=== PATIENT | female | born 1990 ===

== ENCOUNTER 2017-12-18 10:15 | Observation (INO) | payer MEDICAID ==
[2017-12-18 10:15] VITALS: BMI 26.2
--- NOTE | 2017-12-18 10:41 | C.PDOC ---
History Of Present Illness 27 Y/O FEMALE WITH HISTORY OF ANEMIA REFERRED BY PT OBGYN FOR ANEMIA. EGA 32 WKS PATIENT STATES [facility] IS S/P OUTPATIENT LAB 12/17, PATIENT ADVISED TO COME FOR POSSIBLE TRANSFUSION. AT ED PATIENT C/O WORSENING GEN WEAKNESS X SEV WEEKS. NO ABD PAIN, VB OR GI BLEED. EXAM MILD DIST NONTOXIC HEENT +PALLOR ABD GRAVID REMAINDER NEG Chief Complaint (Nursing): Abnormal Labs History Per: Patient History/Exam Limitations: no limitations Onset/Duration Of Symptoms: Days Current Symptoms Are (Timing): Still Present Past Medical History Reviewed: Historical Data, Nursing Documentation, Vital Signs Vital Signs: Last Vital Signs Temp 98.2 F 12/18/17 10:17 Pulse 80 12/18/17 11:55 Resp 18 12/18/17 11:55 BP 100/51 L 12/18/17 11:55 Pulse Ox 100 12/18/17 12:14 - Medical History PMH: Anemia Surgical History: No Surg Hx - [facility] Procedures PACKED CELL TRANSFUSION (02/22/15) Family History: States: No Known Family Hx - Social History Hx Tobacco Use: No Hx Alcohol Use: No Hx Substance Use: No - Immunization History Hx Tetanus Toxoid Vaccination: No Hx Influenza Vaccination: Yes Hx Pneumococcal Vaccination: No Review Of Systems Constitutional: Negative for: Fever, Chills Gastrointestinal: Negative for: Nausea, Vomiting Neurological: Positive for: Weakness. Negative for: Numbness, Dizziness Physical Exam - Physical Exam Appears: Non-toxic, Other (In mild distress) Skin: Warm, Dry, Pale, No Rash Head: Atraumatic, Normacephalic Eye(s): bilateral: PERRL, EOMI, Conjunctiva Pale Oral Mucosa: Moist Neck: Normal ROM, Supple Cardiovascular: Rhythm Regular Respiratory: Normal Breath Sounds, No Rales, No Rhonchi, No Wheezing Gastrointestinal/Abdominal: No Tenderness, No Guarding, No Rebound, Other ( Gravid abdomen) Extremity: Normal ROM, Capillary Refill (<2 seconds) Neurological/Psych: Oriented x3, Normal Speech, Normal Cognition ED Course And Treatment - Laboratory Results Result Diagrams: 12/18/17 11:07 12/18/17 11:07 O2 Sat by Pulse Oximetry: 100 (RA) Pulse Ox Interpretation: Normal Progress - Re-Evaluation Re-evaluation Note: 12/18/17 11:22 exam unch vss. PENDING CALLBACK DR LUCHO PIMENTEL ASSOCIATE PROFESSOR OF SOCIOLOGY 12/18/17 12:09 D/W DR YEPEZ: STATES TO ADMIT MEDICINE, WILL CONSULT. 12/18/17 12:[address] Garcia states will return call 12/18/17 12:39 D/W DR GARCIA AWARE OF ER FINDINGS WILL ADMIT. CONSULT DR SCOTT - Data Reviewed Data Reviewed: Lab, Old records - Continuity of Care Discussed patient case with:: Patient, On-call PMD-pt unassigned Discussed pt. case with baby registry sales consultant/specialty: Obstetrics/Gynecology Disposition Counseled Patient/Family Regarding: Studies Performed, Diagnosis - Disposition Disposition: HOSPITALIZED Disposition Time: 11:22 Condition: STABLE Forms: [employer] [facility] (Lithuanian) - POA Present On Arrival: None - Clinical Impression Clinical Impression: Symptomatic anemia, - Scribe Statement The provider has reviewed the documentation as recorded by the Scribe Raina Merida All medical record entries made by the Scribe were at my direction and personally dictated by me. I have reviewed the chart and agree that the record accurately reflects my personal performance of the history, physical exam, medical decision making, and the department course for this patient. I have also personally directed, reviewed, and agree with the discharge instructions and disposition. Decision To Admit - Pt Status Changed To: Hospital Disposition Of: Observation - . Bed Request Type: Regular Admitting Physician: Antionette Garcia Patient Diagnosis: Symptomatic anemia,
[2017-12-18 11:12] LABS: BASO % 0.5 % (0.0-2.0); EOS # 0.1 K/uL (0.0-0.7); EOS % 0.8 % (0.0-4.0); LYMPH # 2.5 K/uL (1.0-4.3); LYMPH % 32.6 % (20.0-40.0); MEAN CORPUSCULAR HEMOGLOBIN 16.7 pg (27.0-31.0); MEAN CORPUSCULAR HGB CONC 29.3 g/dL (33.0-37.0); MONO # 0.6 K/uL (0.0-0.8); MONO % 7.4 % (0.0-10.0); NEUT # 4.4 K/uL (1.8-7.0); NEUT % 58.7 % (50.0-75.0); NRBC % 1.4 % (0.0-2.0); RBC 3.72 Mil/uL (3.80-5.20); RED CELL DISTRIBUTION WIDTH 23.6 % (11.5-14.5); WHITE BLOOD COUNT 7.5 K/uL (4.8-10.8)
[2017-12-18 11:19] LABS: HEMOGLOBIN 6.2 g/dL (11.0-16.0)
[2017-12-18 11:23] LABS: BLOOD UREA NITROGEN 3 mg/dL (7-17); CALCIUM 8.4 mg/dl (8.6-10.4); GFR AFRICAN-AMERICAN > 60; GFR NON-AFRICAN AMERICAN > 60
[2017-12-18 22:05] LABS: HEMOGLOBIN 7.1 g/dL (11.0-16.0)
--- NOTE | 2017-12-18 22:06 | CP.PCM.CON ---
History of Present Illness - History of Present Illness History of Present Illness: 27 yo female with an IUP at 32 weeks per EDC 02/12/18 and referred from [facility] with severe anemia and symptomatic Review of Systems - Constitutional Constitutional: Fatigue - Cardiovascular Cardiovascular: Lightheadedness - Reproductive: Female Reproductive:Female: Amenorrhea - Menstruation Menstruation: Abnormal Vaginal Bleeding - Psychiatric Psychiatric: Change in Libido, Confusion, Depression Past Patient History - Infectious Disease Hx of Infectious Diseases: None - Past Medical History & Family History Past Medical History?: Yes - Past Social History Smoking Status: Never Smoked Chewing Tobacco Use: No Cigar Use: No Alcohol: < 2 Drinks/Day Home Situation {Lives}: With Family Domestic Violence: Negative - CARDIAC Hx Cardiac Disorders: No - PULMONARY Hx Respiratory Disorders: No - NEUROLOGICAL Hx Neurological Disorder: No - HEENT Hx HEENT Problems: No - RENAL Hx Chronic Kidney Disease: No - ENDOCRINE/METABOLIC Hx Endocrine Disorders: No - HEMATOLOGICAL/ONCOLOGICAL Hx Anemia: Yes - INTEGUMENTARY Hx Dermatological Problems: No - MUSCULOSKELETAL/RHEUMATOLOGICAL Hx Falls: No - GASTROINTESTINAL Hx Gastrointestinal Disorders: No - GENITOURINARY/GYNECOLOGICAL Hx Genitourinary Disorders: No - PSYCHIATRIC Hx Substance Use: No - SURGICAL HISTORY Hx Surgeries: No - ANESTHESIA Hx Anesthesia: No Meds Allergies/Adverse Reactions: Allergies Allergy/AdvReac Type Severity Reaction Status Date / Time No Known Allergies Allergy Unverified 12/18/17 10:20 - Medications Medications: Current Medications Famotidine (Pepcid) 40 mg PO DAILY [facility] Ferrous Sulfate (Feosol) 325 mg PO BID [facility] Multivit/Folic Acid/Iron () 1 tab PO DAILY [facility] Physical Exam - Head Exam Head Exam: NORMAL INSPECTION - Neck Exam Neck exam: Positive for: Normal Inspection - Respiratory Exam Respiratory Exam: NORMAL BREATHING PATTERN - Cardiovascular Exam Cardiovascular Exam: REGULAR RHYTHM - Psychiatric Exam Psychiatric exam: Normal Mood - Skin Skin Exam: Intact Results - Vital Signs Recent Vital Signs: Last Vital Signs Temp 98.3 F 12/18/17 16:57 Pulse 79 12/18/17 16:57 Resp 20 12/18/17 16:57 BP 100/55 L 12/18/17 16:57 Pulse Ox 100 12/18/17 16:57 - Labs Result Diagrams: 12/18/17 11:07 12/18/17 11:07 Labs: Laboratory Results - last 24 hr 12/18/17 12/18/17 12/18/17 11:07 11:07 11:07 WBC 7.5 RBC 3.72 L Hgb 6.2 L* D Hct 21.2 L MCV 57.0 L D MCH 16.7 L MCHC 29.3 L RDW 23.6 H Plt Count 272 MPV 9.0 Neut % (Auto) 58.7 Lymph % (Auto) 32.6 [place] % (Auto) 7.4 Eos % (Auto) 0.8 Baso % (Auto) 0.5 Neut # (Auto) 4.4 Lymph # (Auto) 2.5 [place] # (Auto) 0.6 Eos # (Auto) 0.1 Baso # (Auto) 0.0 Sodium 138 Potassium 3.6 Chloride 105 Carbon Dioxide 22 Anion Gap 14 BUN 3 L Creatinine 0.4 L Est GFR ( Amer) > 60 Est GFR (Non-Af Amer) > 60 Random Glucose 80 Calcium 8.4 L Blood Type O POSITIVE Antibody Screen Negative Assessment & Plan - Assessment and Plan (Free Text) Assessment: 27 yo female with an IUP at 32 weeks Severe Anemia and Symptomatic Non-compliant with Fe therapy daily Admitted for blood transfusion and done as ordered by admitting Physician Denies any dizziness or lightheadnes Admits to adequate Movement NST reactive and reassuring Plan: Daily NST's Continue with Transfusion therapy - Date & Time Date: 12/18/17 Time: 08:40
[2017-12-18 22:21] LABS: IRON 20 ug/dL (37-170)
[2017-12-18 23:02] LABS: TOTAL IRON BINDING CAPACITY 771 ug/dL (250-450)
[2017-12-18 23:03] LABS: % IRON SATURATION 3 (20-55)
[2017-12-19 01:57] VITALS: O2SAT 99
[2017-12-19 06:47] LABS: HEMOGLOBIN 7.9 g/dL (11.0-16.0); MEAN CELL VOLUME 63.2 fL (81.0-99.0); MEAN CORPUSCULAR HEMOGLOBIN 19.3 pg (27.0-31.0); MEAN CORPUSCULAR HGB CONC 30.5 g/dL (33.0-37.0); MEAN PLATELET VOLUME 8.8 fL (7.2-11.7); RBC 4.1 Mil/uL (3.80-5.20); RED CELL DISTRIBUTION WIDTH 30.4 % (11.5-14.5)
[2017-12-19 07:11] LABS: ALB/GLOB RATIO 0.9 (1.0-2.1); ALBUMIN 3.4 g/dL (3.5-5.0); ALT/SGPT 20 U/L (9-52); AST/SGOT 25 U/L (14-36); BLOOD UREA NITROGEN 3 mg/dL (7-17); CALCIUM 8.6 mg/dl (8.6-10.4); GFR AFRICAN-AMERICAN > 60; GFR NON-AFRICAN AMERICAN > 60
[2017-12-19 07:16] LABS: HDL CHOLESTEROL 46 mg/dL (30-70)
[2017-12-19 07:27] LABS: LDL CHOLESTEROL 127 mg/dL (0-129)
[2017-12-19 08:24] LABS: FOLATE 12.4 ng/mL
[2017-12-19] MEDS ORDERED: Prenatal Multivit/Folic Acid/Iron Tab PO SCH (10:00)
[2017-12-19] MEDS ORDERED: Potassium Chloride 10 mEq ER Tab PO ONE (10:00)
[2017-12-19 11:07] VITALS: RESP 18
[2017-12-19 11:37] VITALS: TEMP 98.3
[2017-12-19 13:59] VITALS: BP 108/53; PULSE 90
--- NOTE | 2017-12-19 14:57 | CP.PCM.PN ---
Subjective - Date & Time of Evaluation Date of Evaluation: 12/19/17 Time of Evaluation: 14:54 - Subjective Subjective: House doctor paged that patient would like to sign out of hospital against medical advice Patient AAOx3. Patient states she needs to leave the hospital to take care of her children while her is at work. Patient states she already has follow up appointments scheduled with radio artist Dr. Zeng and PMD Dr. Hudson. Patient explained risks of signing out including worsening anemia, syncope/ fainting, complications, . Patient understands and accepts these risks. Case discussed with admitting attending, Dr. Subramanian, who was present on the floor and also discussed risks with patient. AMA formed signed by patient, witnessed by nurse caring for patient. Objective - Vital Signs/Intake and Output Vital Signs (last 24 hours): Temp Pulse Resp BP Pulse Ox 98.3 F 90 18 108/53 L 99 12/19/17 13:59 12/19/17 13:59 12/19/17 13:59 12/19/17 13:59 12/19/17 07:00 Intake and Output: 12/19/17 12/19/17 06:59 18:59 Intake Total 409 734 Balance 409 734 - Medications Medications: Current Medications Famotidine (Pepcid) 40 mg PO DAILY [facility] Last Admin: 12/19/17 10:11 Dose: 40 mg Ferrous Sulfate (Feosol) 325 mg PO BID [facility] Last Admin: 12/19/17 10:11 Dose: 325 mg Multivit/Folic Acid/Iron () 1 tab PO DAILY [facility] Last Admin: 12/19/17 10:11 Dose: 1 tab - Labs Labs: 12/19/17 06:36 12/19/17 06:36
--- NOTE | 2017-12-20 07:49 | HP ---
The patient is a 27-year-old female. The patient was seen and examined in her room on 12/19/2017. CHIEF COMPLAINT: Feeling fatigue and tiredness. HISTORY OF PRESENT ILLNESS: Ms. Roberta Payne is a 27-year-old female, G4, P2-0-1-2, with an IUP at 32 weeks, per EDC, 02/12/2018, was referred from [facility] with severe anemia and feeling fatigued and tired. The patient was symptomatic, has a history of anemia. The patient was sent by RAILROAD CAR CHECKER for blood transfusion. At bedside, the patient was complaining worsening weakness since couple of weeks. No abdominal pain. No nausea, vomiting, or diarrhea. No hematuria or hematochezia. Looks pale. PAST MEDICAL HISTORY: Anemia. PAST SURGICAL HISTORY: No history of blood transfusion. FAMILY HISTORY: Father and mother, noncontributory. HABITS: No smoking, no drugs, no ethanol. REVIEW OF SYSTEMS: The patient was seen and examined at bedside. and two children were sitting on the bedside also. According to her, her fatigue, weakness, and shortness of breath is better. No fever, no chills. No nausea or vomiting. No headache, no dizziness. Already got 3 units of packed RBC. PHYSICAL EXAMINATION: VITAL SIGNS: Temperature 98.2, pulse 80, respiratory rate 18, blood pressure 100/51. HEENT: Head, normocephalic and atraumatic. Eyes, PERRLA. Extraocular muscles intact. Conjunctivae clear. Nose is patent. Mucous membrane moist. NECK: Supple. No carotid bruit, JVD, or thyromegaly. CHEST: Bilaterally symmetrical. HEART: S1 and S2 positive. LUNGS: Clear to auscultation. ABDOMEN: Soft. Nontender. The patient is . EXTREMITIES: No edema. No cyanosis. NEUROLOGICAL: The patient is awake, alert. Follow simple commands. LABORATORY DATA: White blood cell is 7.0; hemoglobin on admission was 6.2, after one unit of packed RBC, it was 7.2, third hemoglobin was 7.9; hematocrit 25.9; and platelets 246. Sodium 138, potassium 3.8, BUN 3, creatinine 0.4, glucose 87. Alkaline phosphatase 185, triglycerides 299, cholesterol 209. ASSESSMENT AND PLAN: Ms. Roberta Payne is a 27-year-old lady, , came with symptomatic severe anemia. Hemoglobin of 6.2. Three units of packed RBC given. Hemoglobin raised up to 7.9. Hypokalemia replaced. Hypoalbuminemia, hypercholesterolemia, hypertriglyceridemia. B12 is low. History of anemia. Called hematology consult with Dr. Stanley ; RAILROAD CAR CHECKER. Dr. Corinne Segura. Dr. Corinne Segura saw the patient. According to RAILROAD CAR CHECKER, baby is okay. The patient is noncompliant with iron therapy. After blood transfusion, she denies dizziness or lightheadedness. Admits to adequate movement. NST reactive and reassuring. Plan was that the settlement processor to see the patient. May be, the patient needs more blood transfusion, but the patient signed against medical advice. Education done with the patient. was sitting in her room on the bedside also, with two children. Also, saw the patient. The patient is oriented x3. She already has followup appointment scheduled with Hematology, Dr. Zeng, and family care physician, Dr. Hudson. The patient was explained risk of signing out including worsening anemia, syncope, fainting, complications, . The patient understands and accept these risks. Discussion was done with family physician but still the patient signed against the medical advice witnessed by nurse caring the patient. Antionette Subramanian MD [place]
--- NOTE | 2017-12-20 07:52 | DS ---
The patient is a 27-year-old female. The patient was admitted on 12/18/2017, left against medical advice on 12/19/2017. I saw the patient on the morning shift. Three units of packed RBCs given. The patient was advised do not do against medical advice. Appreciated the hospital physician's input, nurses's input, was still waiting for commercial escrow assistant visit but the patient felt better after three blood transfusions and she signed against medical advice. Followup with primary care physician and POLYMER ENGINEER and commercial escrow assistant. For more details, see my H and P. Antionette Subramanian MD
[2017-12-20] MEDS ORDERED: Potassium Chloride 10 mEq ER Tab PO ONE (10:00)
== END 2017-12-19 15:00 | disposition left against medical advice (07) ==
LOC: C.ER 10:15 → C.6T 12:44
PROVIDERS: ADMIT Internal Medicine; ATTEND Internal Medicine
DX: O99.013 Anemia complicating pregnancy, third trimester (principal); O99.283 Endocrine, nutritional and metabolic diseases complicating pregnancy, third trimester; Z3A.32 32 weeks gestation of pregnancy; Z91.14 Patient's other noncompliance with medication regimen; E88.09 Other disorders of plasma-protein metabolism, not elsewhere classified; E87.6 Hypokalemia; E78.1 Pure hyperglyceridemia
CPT/HCPCS: 36415; 36430; 80048; 80053; 80061; 82607; 82746; 83036; 83540; 83550; 84443; 85014; 85018; 85025; 85027; 86850; 86900; 86920; 99285; G0378; P9051